=== PATIENT | male | born 1960 | race American Indian/Alaskan Native ===

== ENCOUNTER 2021-08-07 19:44 | Emergency (ER) | payer OTHER ==
[2021-08-07] MEDS ORDERED: Acetaminophen/HYDROcodone 325-10 MG Tab PO ONE (19:45)
--- NOTE | 2021-08-07 19:54 | EDM.PDOC ---
ED [facility] GENERAL MEDICAL PROBLEM - General Chief Complaint: Flank Pain Stated Complaint: AMBULANCE Time Seen by Provider: 08/07/21 19:44 Source of Information: Reports: Patient, EMS History Limitations: Reports: No Limitations - History of Present Illness INITIAL COMMENTS - FREE TEXT/NARRATIVE: This 61 yo male patient reports to the ED with left flank pain that started today at about 1600. The patient reports he had similar symptoms on Tuesday, but those symptoms resolved on their own. The patient reports he has a history of osteoporosis, lower back pain (degeneration of L1-L4 with 2 previous surgeries at [facility]), sciatica resulting from the low back pain and rheumatoid arthritis. The patient denies any previous abdominal surgeries. Onset: Today Onset Date: 08/07/21 Onset Time: 16:00 Duration: Constant Location: Reports: Back (left flank pain) Quality: Reports: Ache, Sharp Severity: Moderate Improves with: Reports: None Worsens with: Reports: None Context: Reports: Other Associated Symptoms: Reports: No Other Symptoms Left Flank Pain Score (Numeric/FACES): 10 - Related Data Allergies Allergy/AdvReac Type Severity Reaction Status Date / Time No Known Allergies Allergy Verified 08/07/21 20:03 ED ROS GENERAL - Review of Systems Review Of Systems: Comprehensive ROS is negative, except as noted in HPI. ED EXAM, GI/ABD - Physical Exam Exam: See Below Exam Limited By: No Limitations General Appearance: Alert, WD/WN, Moderate Distress Eyes: Bilateral: Normal Appearance, EOMI Ears: Normal External Exam, Normal Canal, Hearing Grossly Normal, Normal TMs Nose: Normal Inspection, Normal Mucosa, No Blood Throat/Mouth: Normal Inspection, Normal Lips, Normal Teeth, Normal Gums, Normal Oropharynx, Normal Voice, No Airway Compromise Head: Atraumatic, Normocephalic Neck: Normal Inspection, Supple, Non-Tender, Full Range of Motion Respiratory/Chest: No Respiratory Distress, Lungs Clear, Normal Breath Sounds, No Accessory Muscle Use, Chest Non-Tender Cardiovascular: Normal Peripheral Pulses, Regular Rate, Rhythm, No Edema, No Gallop, No JVD, No Murmur, No Rub GI/Abdominal Exam: Normal Bowel Sounds, Soft, Non-Tender, No Organomegaly, No Distention, No Abnormal Bruit, No Mass, Pelvis Stable (Male) Exam: Deferred Rectal (Males) Exam: Deferred Back Exam: CVA Tenderness (L) Extremities: Normal Inspection, Normal Range of Motion, Non-Tender, Normal Capillary Refill, No Pedal Edema Neurological: Alert, Oriented, CN II-XII Intact, Normal Cognition, Normal Gait, Normal Reflexes, No Motor/Sensory Deficits Psychiatric: Normal Affect, Normal Mood Skin Exam: Warm, Dry, Intact, Normal Color, No Rash Lymphatic: No Adenopathy Course - Vital Signs Last Recorded V/S: Last Vital Signs Temp 100.7 F H 08/07/21 21:14 Pulse 85 08/07/21 21:14 Resp 16 08/07/21 21:14 BP 143/93 H 08/07/21 21:14 Pulse Ox 94 L 08/07/21 21:14 - Orders/Labs/Meds Orders: Active Orders 24 hr Category Date Time Status Abdomen Pelvis wo Cont [CT] Urgent Exams 08/07/21 20:34 Ordered CULTURE BLOOD [BC] Stat Lab 08/07/21 19:46 Ordered Sodium Chloride 0.9% [Normal Saline] 1,000 ml Med 08/07/21 21:04 Ordered IV .BOLUS Medication Orders Sodium Chloride (Normal Saline) 1,000 mls @ 999 mls/hr IV .BOLUS ONE Stop: 08/07/21 22:04 Last Admin: 08/07/21 21:09 Dose: 999 mls/hr Documented by: SANTA Labs: Laboratory Tests 08/07/21 08/07/21 08/07/21 Range/Units 20:00 20:00 20:00 WBC 12.9 H (5.0-10.0) 10^3/uL RBC 4.76 (4.6-6.2) 10^6/uL Hgb 14.9 (14.0-18.0) g/dL Hct 43.4 (40.0-54.0) % MCV 91.2 (80-100) fL MCH 31.3 (27.0-34.0) pg MCHC 34.3 (33.0-35.0) g/dL Plt Count 234 (150-450) 10^3/uL Neut % (Auto) 67.6 (42.2-75.2) % Lymph % (Auto) 18.3 L (20.5-50.1) % Aurora % (Auto) 12.2 H (2-8) % Eos % (Auto) 1.5 (1.0-3.0) % Baso % (Auto) 0.4 (0.0-1.0) % Sodium 141 (136-145) mmol/L Potassium 3.5 (3.5-5.1) mmol/L Chloride 104 (98-107) mmol/L Carbon Dioxide 26 (21-32) mmol/L Anion Gap 14.5 H (7-13) mEq/L BUN 17 (7-18) mg/dL Creatinine 1.30 (0.70-1.30) mg/dL Est Cr Clr Drug Dosing 63.55 mL/min Estimated GFR (MDRD) 56 BUN/Creatinine Ratio 13.1 (No establ ref range) Glucose 100 H (70-99) mg/dL Lactic Acid 0.9 (0.4-2.0) mmol/L Calcium 8.6 (8.5-10.1) mg/dL Total Bilirubin 0.4 (0.2-1.0) mg/dL AST 15 (15-37) U/L ALT 19 (16-63) U/L Alkaline Phosphatase 65 (46-116) U/L Total Protein 7.1 (6.4-8.2) g/dL Albumin 3.6 (3.4-5.0) g/dL Globulin 3.5 Albumin/Globulin Ratio 1.0 Amylase 55 (25-115) U/L Lipase 91 (73-393) U/L Urine Color (YELLOW) Urine Appearance (CLEAR) Urine pH (5.0-9.0) Ur Specific [place] (1.005-1.030) Urine Protein (NEGATIVE) Urine Glucose (UA) (NEGATIVE) Urine Ketones (NEGATIVE) Urine Occult Blood (NEGATIVE) Urine Nitrite (NEGATIVE) Urine Bilirubin (NEGATIVE) Urine Urobilinogen (0.2-1.0) mg/dL Ur Leukocyte Esterase (NEGATIVE) Urine RBC (0-5) /HPF Urine WBC (0-5/HPF) /HPF Ur Epithelial Cells (NOT SEEN) /HPF Urine Bacteria (0-FEW/HPF) /HPF Influenza Type A RNA (NEGATIVE) Influenza Type B RNA (NEGATIVE) SARS-CoV-2 RNA (BRUCE) (NEGATIVE) 08/07/21 08/07/21 Range/Units 20:04 20:04 WBC (5.0-10.0) 10^3/uL RBC (4.6-6.2) 10^6/uL Hgb (14.0-18.0) g/dL Hct (40.0-54.0) % MCV (80-100) fL MCH (27.0-34.0) pg MCHC (33.0-35.0) g/dL Plt Count (150-450) 10^3/uL Neut % (Auto) (42.2-75.2) % Lymph % (Auto) (20.5-50.1) % Aurora % (Auto) (2-8) % Eos % (Auto) (1.0-3.0) % Baso % (Auto) (0.0-1.0) % Sodium (136-145) mmol/L Potassium (3.5-5.1) mmol/L Chloride (98-107) mmol/L Carbon Dioxide (21-32) mmol/L Anion Gap (7-13) mEq/L BUN (7-18) mg/dL Creatinine (0.70-1.30) mg/dL Est Cr Clr Drug Dosing mL/min Estimated GFR (MDRD) BUN/Creatinine Ratio (No establ ref range) Glucose (70-99) mg/dL Lactic Acid (0.4-2.0) mmol/L Calcium (8.5-10.1) mg/dL Total Bilirubin (0.2-1.0) mg/dL AST (15-37) U/L ALT (16-63) U/L Alkaline Phosphatase (46-116) U/L Total Protein (6.4-8.2) g/dL Albumin (3.4-5.0) g/dL Globulin Albumin/Globulin Ratio Amylase (25-115) U/L Lipase (73-393) U/L Urine Color Yellow (YELLOW) Urine Appearance Slightly cloudy (CLEAR) Urine pH 5.5 (5.0-9.0) Ur Specific [place] >= 1.030 (1.005-1.030) Urine Protein Negative (NEGATIVE) Urine Glucose (UA) 100 H (NEGATIVE) Urine Ketones Negative (NEGATIVE) Urine Occult Blood Small H (NEGATIVE) Urine Nitrite Negative (NEGATIVE) Urine Bilirubin Negative (NEGATIVE) Urine Urobilinogen 0.2 (0.2-1.0) mg/dL Ur Leukocyte Esterase Negative (NEGATIVE) Urine RBC 0-5 (0-5) /HPF Urine WBC 0-5 (0-5/HPF) /HPF Ur Epithelial Cells Few (NOT SEEN) /HPF Urine Bacteria Few (0-FEW/HPF) /HPF Influenza Type A RNA Negative (NEGATIVE) Influenza Type B RNA Negative (NEGATIVE) SARS-CoV-2 RNA (BRUCE) Negative (NEGATIVE) Meds: Medications Generic Name Dose Route Start Last Admin Trade Name Freq PRN Reason Stop Dose Admin Sodium Chloride 1,000 mls @ 999 mls/hr 08/07/21 21:04 08/07/21 21:09 Normal Saline IV 08/07/21 22:04 999 mls/hr .BOLUS ONE Administration Discontinued Medications Generic Name Dose Route Start Last Admin Trade Name Freq PRN Reason Stop Dose Admin Ketorolac Tromethamine 30 mg 08/07/21 20:14 08/07/21 20:23 Ketorolac 30 Mg/Ml Sdv IVPUSH 08/07/21 20:15 30 mg ONETIME ONE Administration Tamsulosin HCl 0.4 mg 08/07/21 21:04 08/07/21 21:10 Tamsulosin 0.4 Mg Cap.Er PO 08/07/21 21:05 0.4 mg ONETIME ONE Administration - Radiology Interpretation Free Text/Narrative:: [facility] Final Radiology Report Call: [phone] assistance Online chat: [email or web address] Name: KELSIE JUDGE Age: 61Years M Date: 08/07/2021 SSN: -- : [id number] Study: CT ABDOMEN PELVIS WO CONT Requesting Physician: Jaime Izquierdo Images: [phone] Addl Studies: Provided Clinical History: left flank pain with hematuria Contrast: Without Contrast Medium: Contrast Amount: Contrast Method: Page 1 of 2 PROCEDURE INFORMATION: Exam: CT Abdomen And Pelvis Without Contrast Exam date and time: 08/07/2021 8:51 PM Age: 61 years old Clinical indication: Other: Left sided pain; Additional info: Left flank pain with hematuria TECHNIQUE: Imaging protocol: Computed tomography of the abdomen and pelvis without contrast. Radiation optimization: All CT scans at this facility use at least one of these dose optimization techniques: automated exposure control; mA and/or kV adjustment per patient size (includes targeted exams where dose is matched to clinical indication); or iterative reconstruction. COMPARISON: No relevant prior studies available. FINDINGS: Lungs: There is atelectasis in the lung bases bilaterally. There are no pleural effusions. There appears to be a pulmonary nodule in the right lung on the drawing instructor image. Liver: Allowing for lack of IV contrast, no focal hepatic lesions are identified. Gallbladder and bile ducts: The gallbladder is not distended. There is no biliary ductal dilatation. Pancreas: The pancreas is within normal limits. Spleen: The spleen is normal in size. Adrenal glands: The adrenal glands are normal in appearance. Kidneys and ureters: The right kidney is normal in size, and is rotated with its renal pelvis directed anteriorly. There is a 3 mm nonobstructing calculus in the upper pole the right kidney. The left kidney is enlarged. There is moderate left hydronephrosis. There is a 4 mm calculus in the left ureter at the level of the L4-L5 disc space. There is left perinephric fat stranding. No calculi are seen within the left kidney. Stomach and bowel: The stomach is not distended. No pathologically dilated small bowel loops are identified. There is no evidence of colonic wall thickening or pericolonic inflammation. KELSIE JUDGE | Final Radiology Report CONFIDENTIALITY STATEMENT This report is intended only for use by the referring physician, and only in accordance with law. If you received this in error, call [phone]. Page 2 of 2 Appendix: There is a normal appendix in the right lower quadrant. Intraperitoneal space: There is no free air or free fluid in the abdomen or pelvis. Vasculature: The aorta is normal in caliber. Lymph nodes: No pathologically enlarged lymph nodes are identified in the abdomen or pelvis. Urinary bladder: The urinary bladder appears normal. Reproductive: The prostate gland and seminal vesicles are unremarkable. Bones/joints: There is advanced degenerative disc disease at L4-L5 and L5-S1. There is right unilateral spondylolysis at L4. There is bilateral spondylolysis at L5 resulting in grade 1 anterolisthesis of L5 upon S1. No acute fractures or aggressive bone lesions are identified. The patient appears to be status post right hemilaminectomy at L4. Soft tissues: There is a small left inguinal hernia which is fat containing only. IMPRESSION: 1. Moderate left hydronephrosis secondary to a 4 mm calculus in the mid left ureter at the level of the L4-L5 disc space. There is a 3 mm nonobstructing calculus in the right kidney. 2. Advanced degenerative disease in the lower lumbar spine. 3. Suspected pulmonary nodule in the right lung, seen on the drawing instructor view only. Consider correlation with any previous chest radiographs to determine stability. Thank you for allowing us to participate in the care of your patient. Dictated and Authenticated by: Grace Chang MD 08/07/2021 9:27 PM Central Time ([place] & Franc) - Re-Assessments/Exams Free Text/Narrative Re-Assessment/Exam: 08/07/21 20:17 Kelsie Judge, 61M Ref[employer] Search Contact the [facility] [employer] [facility] Date of : 1960 Showing 1-3 of 3 Items View 15 Items 1 of 1 Filled Written ID Drug QTY Days Prescriber RX # Dispenser Refill Daily Dose* Pymt Type QA ARCHITECT 12/22/2020 12/22/2020 1 Gabapentin 100 Mg Capsule 28.00 28 Mo Bey [id number] Que (6834) 0/5 Aziza ND 11/10/2020 11/10/2020 1 Tramadol Hcl 50 Mg Tablet 56.00 28 Er Dir [id number] Que (6834) 0/0 10.00 MME Aziza ND 10/09/2020 10/09/2020 1 Gabapentin 100 Mg Capsule 28.00 28 Er Dir [id number] Que (6834) 0/0 Aziza ND Disclaimer Showing 1-3 of 3 Items View 15 Items 1 of 1 Providers Total: 2 Showing 1-2 of 2 Items View 15 Items 1 of 1 Name Address [facility] State Zipcode Phone Kellen Staley MD [address] [place] [address] Negin Montano [address] [facility] [address] Showing 1-2 of 2 Items View 15 Items 1 of 1 Pharmacies Total: 1 Showing 1 Item View 15 Items 1 of 1 Name Address [facility] Zipcode Phone Marco Agudelo [facility] [phone] [facility] [address] All [place] schedule II-V controlled substances & drugs of concern dispensed in [place], as a take-home medication, are required by law to be reported to the [place] Prescription Drug Monitoring Program (PDMP). The information in the PDMP database may contain errors resulting from the reporting of information received. The PDMP staff suggests that additional independent verification of patient profile information with pharmacies and prescribers may sometimes be prudent or necessary. You may notice a delay with some federally operated facilities or [id number] pharmacies that dispense less than 15 prescriptions a year to [place]. We receive all [place] [employer] and Department of Defense prescriptions dispensed in [place] and from group home facilities unless they are dispensed from a federal facility not governed by the VA or Department of Defense, such as [facility] Mail [facility] out [facility]. Any treatment facilities that dispense directly to their patients are covered by 42 CFR part 2 and do not currently report to the program. Please email pdmp@[email or web address] for any data concerns or questions. This website uses QuantumSphere, a web analytics service provided by [employer]. ("[employer]"). [employer]here uses "cookies", which are text files placed on your computer, to help the website analyze how users use the site. The information generated by the [employer] about your use of the website will be transmitted to and stored by [employer] on servers in the [place]. In case IP-anonymization is activated on this website, your IP address will be truncated within the area of Member States of the Union or other parties to the Agreement on the Economic Area. Only in exceptional cases the whole IP address will be first transferred to a Google weather observer in the [facility] and truncated there. The IP-anonymization is active on this website. [employer] will use this information on behalf of the back roll lathe operator of this website for the purpose of evaluating your use of the website, compiling reports on website activity for website operators and providing them other services relating to website activity and internet usage. The IP-address, that your Browser conveys within the scope of QuantumSphere, will not be associated with any other data held by [employer]. You may refuse the use of Receptor by selecting the appropriate settings on your browser, however please note that if you do this you may not be able to use the full functionality of this website. You can also opt-out from being tracked by [employer] with effect for the future by downloading and installing Quantum[employer]here Opt-out Browser Addon for your current web browser: [email or web address]/gaoptout?hl=en. Departure - Departure Time of Disposition: 21:34 Disposition: Home, Self-Care 01 Condition: Fair Clinical Impression: Kidney stone on left side - Discharge Information *PRESCRIPTION DRUG MONITORING PROGRAM REVIEWED*: Not Applicable *COPY OF PRESCRIPTION DRUG MONITORING REPORT IN PATIENT EUGENIO: Not Applicable Instructions: Kidney Stones, [id number] Forms: ED Department Discharge Care Plan Goals: The patient was advised of the examination, lab and CT results during the visit. The patient was given IV fluids, IV Toradol and an oral dose of Flomax while in the ED. The patient was discharged with a script for Toradol (10 mg) #20 to take 1 by mouth every 6 hours with food, Flomax (0.4 mg) #7 to take 1 by mouth daily for 10 days and Rice (10/325) #4 to take 1 by mouth every 6 hours as needed for breakthrough pain . The patient should follow-up with his primary care facility in about 1 week. There was an incidental finding on CT of a suspected pulmonary nodule on the right lung which requires further evaluation by the patient's primary care facility in the near future. If the patient has any additional symptoms or concerns, the patient should either return to the emergency department or visit his primary care facility. Sepsis Event Note (ED) - Focused Exam Vital Signs: Vital Signs Temp Pulse Resp BP Pulse Ox 08/07/21 21:14 100.7 F H 85 16 143/93 H 94 L 08/07/21 19:44 99.3 F 93 18 149/96 H 93 L - My Orders Last 24 Hours: My Active Orders 08/07/21 19:46 CULTURE BLOOD [BC] Stat 08/07/21 20:34 Abdomen Pelvis wo Cont [CT] Urgent 08/07/21 21:04 Sodium Chloride 0.9% [Normal Saline] 1,000 ml IV .BOLUS - Assessment/Plan Last 24 Hours: My Active Orders 08/07/21 19:46 CULTURE BLOOD [BC] Stat 08/07/21 20:34 Abdomen Pelvis wo Cont [CT] Urgent 08/07/21 21:04 Sodium Chloride 0.9% [Normal Saline] 1,000 ml IV .BOLUS
[2021-08-07] MEDS ORDERED: Ketorolac 30 MG/ML SDV IVPUSH ONE (20:14)
[2021-08-07 20:25] LABS: ANION GAP 14.5 mEq/L (7-13)
[2021-08-07 20:32] LABS: CORONAVIRUS COVID-19 NAA NEGATIVE (NEGATIVE)
[2021-08-07] MEDS ORDERED: Sodium Chloride 0.9% 1,000 ML IV ONE (21:04)
[2021-08-07] MEDS ORDERED: Tamsulosin 0.4 MG Cap.ER PO ONE (21:04)
[2021-08-07] MEDS ORDERED: Acetaminophen/HYDROcodone 325-10 MG Tab ONE (21:17)
--- NOTE | 2021-08-07 21:27 | CT ---
PROCEDURE INFORMATION: Exam: CT Abdomen And Pelvis Without Contrast Exam date and time: 08/07/2021 8:51 PM Age: 61 years old Clinical indication: Other: Left sided pain; Additional info: Left flank pain with hematuria TECHNIQUE: Imaging protocol: Computed tomography of the abdomen and pelvis without contrast. Radiation optimization: All CT scans at this facility use at least one of these dose optimization techniques: automated exposure control; mA and/or kV adjustment per patient size (includes targeted exams where dose is matched to clinical indication); or iterative reconstruction. COMPARISON: No relevant prior studies available. FINDINGS: Lungs: There is atelectasis in the lung bases bilaterally. There are no pleural effusions. There appears to be a pulmonary nodule in the right lung on the medical referral coordinator image. Liver: Allowing for lack of IV contrast, no focal hepatic lesions are identified. Gallbladder and bile ducts: The gallbladder is not distended. There is no biliary ductal dilatation. Pancreas: The pancreas is within normal limits. Spleen: The spleen is normal in size. Adrenal glands: The adrenal glands are normal in appearance. Kidneys and ureters: The right kidney is normal in size, and is rotated with its renal pelvis directed anteriorly. There is a 3 mm nonobstructing calculus in the upper pole the right kidney. The left kidney is enlarged. There is moderate left hydronephrosis. There is a 4 mm calculus in the left ureter at the level of the L4-L5 disc space. There is left perinephric fat stranding. No calculi are seen within the left kidney. Stomach and bowel: The stomach is not distended. No pathologically dilated small bowel loops are identified. There is no evidence of colonic wall thickening or pericolonic inflammation. Appendix: There is a normal appendix in the right lower quadrant. Intraperitoneal space: There is no free air or free fluid in the abdomen or pelvis. Vasculature: The aorta is normal in caliber. Lymph nodes: No pathologically enlarged lymph nodes are identified in the abdomen or pelvis. Urinary bladder: The urinary bladder appears normal. Reproductive: The prostate gland and seminal vesicles are unremarkable. Bones/joints: There is advanced degenerative disc disease at L4-L5 and L5-S1. There is right unilateral spondylolysis at L4. There is bilateral spondylolysis at L5 resulting in grade 1 anterolisthesis of L5 upon S1. No acute fractures or aggressive bone lesions are identified. The patient appears to be status post right hemilaminectomy at L4. Soft tissues: There is a small left inguinal hernia which is fat containing only. IMPRESSION: 1. Moderate left hydronephrosis secondary to a 4 mm calculus in the mid left ureter at the level of the L4-L5 disc space. There is a 3 mm nonobstructing calculus in the right kidney. 2. Advanced degenerative disease in the lower lumbar spine. 3. Suspected pulmonary nodule in the right lung, seen on the medical referral coordinator view only. Consider correlation with any previous chest radiographs to determine stability.
== END 2021-08-07 22:09 | disposition home or self-care (01) ==
LOC: DL.ED 19:44
DX: N13.2 Hydronephrosis with renal and ureteral calculous obstruction (principal); Z20.822 Contact with and (suspected) exposure to COVID-19
CPT/HCPCS: 0240U; 36415; 74176; 80053; 81001; 82150; 83605; 83690; 85025; 87040; 96374; 99284; A9270; J1885; J7030